=== PATIENT | male | born 1990 | race Caucasian/White ===

== ENCOUNTER 2020-02-08 14:40 | Emergency (ER) | payer OTHER, SELFPAY ==
[2020-02-08 14:57] VITALS: BP 135/81; PULSE 94; RESP 16; TEMP 36.6; O2SAT 100
--- NOTE | 2020-02-08 15:12 | ED.GENADULT ---
HPI - General Adult General Chief complaint: Urogenital-Male Stated complaint: STD Time Seen by Provider: 02/08/20 15:12 Source: patient and RN notes reviewed Mode of arrival: ambulatory Limitations: no limitations History of Present Illness HPI narrative: This is 30 years old male presents to the office for STD testing. States, his girlfriend tested positive for chlamydia and told him today. He does not have any symptoms at this time. Denies history of STD in the past. Related Data Allergies Allergy/AdvReac Type Severity Reaction Status Date / Time amoxicillin Allergy Unknown Other Verified 02/08/20 15:07 cefaclor Allergy Unknown Other Verified 02/08/20 15:07 sulfamethoxazole Allergy Unknown Other Verified 02/08/20 15:07 trimethoprim Allergy Unknown Other Verified 02/08/20 15:07 Review of Systems Review of Systems: Narrative: CONSTITUTIONAL: Denies fever or feeling ill ENT: Denies congestion. CARDIOVASCULAR: Denies chest pain RESPIRATORY: Denies dyspnea GASTROINTESTINAL: Denies abdominal pain, nausea, vomiting GENITOURINARY: Denies urinary symptoms or discharge SKIN: Denies rash MUSCULOSKELETAL: Denies acute back pain NEUROLOGIC: Denies lightheaded PMFSH Social History Social History (Updated 02/08/20 @ 15:29 by KEYUR Marcano) Smoking status: Never smoker Comments At time of signature, I agree with nursing past medical, surgical, social and family history. There is no relevant family history pertinent to the presenting complaint. Exam Narrative: Exam Narrative: GENERAL: This is a well-nourished, well-developed patient, in no apparent distress. CARDIOVASCULAR: Regular rate and rhythm without murmurs, gallops, or rubs. RESPIRATORY: Clear to auscultation. Breath sounds equal bilaterally. No wheezes, rales, or rhonchi. GASTROINTESTINAL: Abdomen soft, non-tender, nondistended. Bowel sounds are active. No hepato-splenomegaly, or palpable masses. No guarding. SKIN: warm, intact with no suspicious lesions or rash, good texture and turgor. NEURO: awake, alert, and oriented to person, place and time. There were no obvious focal neurologic abnormalities. Steady gait BACK: No flank tenderness. [place] Coma Scale Eye Opening: Spontaneous 4 [place] Coma Scale Motor: Obeys Commands 6 [place] Coma Scale Verbal: Oriented 5 Course Vital Signs Vital signs: Vital Signs Temperature 97.8 F 02/08/20 14:57 Pulse Rate 94 02/08/20 14:57 Respiratory Rate 16 02/08/20 14:57 Blood Pressure 135/81 02/08/20 14:57 Pulse Oximetry 100 02/08/20 14:57 Temperature 97.8 F 02/08/20 14:57 Pulse Rate 94 02/08/20 14:57 Respiratory Rate 16 02/08/20 14:57 Blood Pressure 135/81 02/08/20 14:57 Pulse Oximetry 100 02/08/20 14:57 Medical Decision Making MDM Narrative Medical decision making narrative: Due to patient allergy I went ahead and sent doxycycline and azithromycin to his pharmacy instead. Discharge instructions reviewed with patient, as well as provided in writing per nursing staff. The instructions also include specific and strict return/GO TO THE ER as well as f/u information. All questions have been answered, and the patient deny any further questions with discharge and discharge plan. Differential Diagnosis Differential Diagnosis: Cystitis, epididymitis, STD, syphilis, herpes Vital Signs Vital Signs: Vital Signs Temperature 97.8 F 02/08/20 14:57 Pulse Rate 94 02/08/20 14:57 Respiratory Rate 16 02/08/20 14:57 Blood Pressure 135/81 02/08/20 14:57 Pulse Oximetry 100 02/08/20 14:57 Temperature 97.8 F 02/08/20 14:57 Pulse Rate 94 02/08/20 14:57 Respiratory Rate 16 02/08/20 14:57 Blood Pressure 135/81 02/08/20 14:57 Pulse Oximetry 100 02/08/20 14:57 Critical Care Time Critical Care Time Critical Care Time: No Discharge Plan Discharge Clinical Impression: Encounter for assessment of STD exposure Patient Disposition: Home, Self-Care
== END 2020-02-08 15:26 | disposition home or self-care (01) ==
PROVIDERS: Emergency Provider Nurse Practitioner
DX: Z20.2 Contact with and (suspected) exposure to infections with a predominantly sexual mode of transmission (principal)
CPT/HCPCS: 87491; 87591; 99213; G0463